=== PATIENT | male | born 1975 | race Caucasian/White ===

== ENCOUNTER 2022-08-29 10:54 | Inpatient (IN) ==
[2022-08-29] MEDS ORDERED: NS 0.9% 1000 ml BAG 1,000 ML IV ONE ×2 (10:56→15:50)
[2022-08-29] MEDS ORDERED: ceFAZolin 1 GM in Dextrose 1 GM/50 ML BAG IVPB ONE (11:02)
[2022-08-29 11:20] LABS: ABS Lymphocytes 0.8 10^3/uL (1.0-4.8); ABS Monocytes 0.6 10^3/uL (0.0-1.1); ABS Neutrophils 10.6 10^3/uL (1.5-7.6); ABS Nucleated RBC 0.01 10^3/ul; Eosinophil % 0.3 %; Hematocrit 41.3 % (38-53); Hemoglobin 13.9 g/dL (13.2-16.3); Lymphocyte % 6.6 %; Mean Corpuscular Hemoglobin 31.1 pg (27-33); Mean Corpuscular Hgb Conc 33.6 g/dL (31-36); Mean Corpuscular Volume 92.8 fL (80-97); Mean Platelet Volume 8.6 fL (7.5-11.2); Nucleated Red Blood Cells % 0.1 /100 WBC (0.0-0.4); Platelet Count 206 10^3/uL (150-450); Red Blood Count 4.46 10^6/uL (4.06-5.63); Red Cell Distribution Width 13.6 % (12-17)
[2022-08-29 12:03] LABS: Albumin 3.5 g/dL (3.2-5.2); C Reactive Protein 18.26 mg/L (<8.01); Calcium 8.9 mg/dL (8.6-10.3); Creatinine, Serum 0.93 mg/dL (0.67-1.17); Globulin 3.5 g/dL (2-4); Potassium 4.4 mmol/L (3.5-5.0); Total Bilirubin 0.6 mg/dL (0.2-1.0); eGFR CKD-EPI 100.7 (>60)
[2022-08-29 14:38] LABS: Urine Appearance Clear; Urine Bilirubin Negative (Negative); Urine Blood Negative (Negative); Urine Color Yellow; Urine Glucose Negative (Negative); Urine Ketones Negative (Negative); Urine Nitrite Negative (Negative); Urine Protein Negative (Negative); Urine Specific Gravity 1.011 (1.002-1.030); Urine Urobilinogen Negative (Negative)
[2022-08-29 14:47] LABS: Urine Bacteria Absent (Absent); Urine Red Blood Cell Trace(0-2/hpf) (Absent); Urine White Blood Cell 2+(11-20/hpf) (Absent)
[2022-08-29] MEDS ORDERED: Dextrose 50% Syringe 50 ml 25 GM/50 ML SYRINGE IV PUSH PRN (16:51)
[2022-08-29] MEDS ORDERED: Nicotine PATCH 14 MG/24 HR PATCH TRANSDERM SCH (17:00)
[2022-08-29] MEDS: Nicotine PATCH 21 MG/24 HR PATCH TRANSDERM SCH (17:06)
[2022-08-29] MEDS: Enoxaparin 40 MG/0.4 ML SYR SUBCUT SCH (17:06)
[2022-08-29] MEDS ORDERED: NS 0.9% 500 ml BAG 500 ML IV ONE (20:53)
[2022-08-29] MEDS: NS 0.9% 1000 ml BAG 1,000 ML IV SCH ×2 (20:54→21:42)
[2022-08-29] MEDS: Albuterol HFA INHALER 8 gm MDI INH PRN (21:22)
[2022-08-29] MEDS: cefTRIAXone 1 gm/50 mL D5W 1 GM/50 ML BAG IV SCH (23:01)
[2022-08-30 06:52] LABS: ABS Lymphocytes 1.3 10^3/uL (1.0-4.8); ABS Monocytes 0.7 10^3/uL (0.0-1.1); ABS Neutrophils 6.8 10^3/uL (1.5-7.6); ABS Nucleated RBC 0.01 10^3/ul; Eosinophil % 0.2 %; Hematocrit 35.9 % (38-53); Hemoglobin 12.2 g/dL (13.2-16.3); Lymphocyte % 14.7 %; Mean Corpuscular Hemoglobin 31.5 pg (27-33); Mean Corpuscular Hgb Conc 33.8 g/dL (31-36); Mean Corpuscular Volume 93.2 fL (80-97); Nucleated Red Blood Cells % 0.1 /100 WBC (0.0-0.4); Platelet Count 163 10^3/uL (150-450); Red Blood Count 3.86 10^6/uL (4.06-5.63); Red Cell Distribution Width 13.5 % (12-17); White Blood Count 8.9 10^3/uL (3.6-10.2)
[2022-08-30 07:10] LABS: Albumin 2.9 g/dL (3.2-5.2); Albumin/Globulin Ratio 0.9 (1-3); Calcium 8.2 mg/dL (8.6-10.3); Creatinine, Serum 1.11 mg/dL (0.67-1.17); Globulin 3.1 g/dL (2-4); Magnesium 1.6 mg/dL (1.9-2.7); Potassium 4.1 mmol/L (3.5-5.0); Total Bilirubin 0.8 mg/dL (0.2-1.0); eGFR CKD-EPI 81.4 (>60)
[2022-08-30] MEDS: FLUTICAS/UMECLI/VILANT 100-62.5-25 MDI (NF) INH SCH (07:11)
[2022-08-30] MEDS: Albuterol HFA INHALER 8 gm MDI INH PRN (07:11)
[2022-08-30] MEDS ORDERED: Magnesium Sulfate IV 3 GM in NS 0.9% 100 ml BAG 100 ML IVPB ONE (07:56)
[2022-08-30] MEDS: Nicotine PATCH 21 MG/24 HR PATCH TRANSDERM SCH (08:41)
[2022-08-30] MEDS ORDERED: Nicotine PATCH 14 MG/24 HR PATCH TRANSDERM SCH (09:00)
[2022-08-30] MEDS: NS 0.9% 1000 ml BAG 1,000 ML IV SCH ×2 (09:49→21:21)
[2022-08-30] MEDS: Enoxaparin 40 MG/0.4 ML SYR SUBCUT SCH (16:58)
[2022-08-30] MEDS: cefTRIAXone 1 gm/50 mL D5W 1 GM/50 ML BAG IV SCH (20:27)
[2022-08-30] MEDS ORDERED: Dextrose 50% Syringe 50 ml 25 GM/50 ML SYRINGE IV PUSH PRN (22:25)
[2022-08-31 06:26] LABS: ABS Eosinophils 0.1 10^3/uL (0.0-0.5); ABS Lymphocytes 2.2 10^3/uL (1.0-4.8); ABS Monocytes 1.3 10^3/uL (0.0-1.1); ABS Neutrophils 8.2 10^3/uL (1.5-7.6); ABS Nucleated RBC 0.01 10^3/ul; Eosinophil % 0.5 %; Hematocrit 37.4 % (38-53); Hemoglobin 12.6 g/dL (13.2-16.3); Lymphocyte % 18.8 %; Mean Corpuscular Hemoglobin 31.4 pg (27-33); Mean Corpuscular Hgb Conc 33.8 g/dL (31-36); Mean Platelet Volume 8.3 fL (7.5-11.2); Nucleated Red Blood Cells % 0.1 /100 WBC (0.0-0.4); Platelet Count 180 10^3/uL (150-450); Red Blood Count 4.02 10^6/uL (4.06-5.63); Red Cell Distribution Width 13.6 % (12-17); White Blood Count 11.9 10^3/uL (3.6-10.2)
[2022-08-31 07:17] LABS: Albumin 3.1 g/dL (3.2-5.2); Calcium 8.4 mg/dL (8.6-10.3); Magnesium 1.5 mg/dL (1.9-2.7); Potassium 4.2 mmol/L (3.5-5.0); Total Bilirubin 0.6 mg/dL (0.2-1.0)
[2022-08-31 07:23] LABS: Albumin/Globulin Ratio 0.9 (1-3); Creatinine, Serum 0.99 mg/dL (0.67-1.17); Globulin 3.4 g/dL (2-4); Total Protein 6.5 g/dL (6.4-8.9); eGFR CKD-EPI 93.4 (>60)
[2022-08-31] MEDS: FLUTICAS/UMECLI/VILANT 100-62.5-25 MDI (NF) INH SCH (07:53)
[2022-08-31] MEDS: Albuterol HFA INHALER 8 gm MDI INH PRN (07:53)
[2022-08-31] MEDS: NS 0.9% 1000 ml BAG 1,000 ML IV SCH (08:03)
[2022-08-31] MEDS ORDERED: Magnesium Sulfate IV 3 GM in NS 0.9% 100 ml BAG 100 ML IVPB ONE (08:05)
[2022-08-31] MEDS: Nicotine PATCH 21 MG/24 HR PATCH TRANSDERM SCH (08:05)
[2022-08-31] MEDS ORDERED: cefTRIAXone 1 gm/50 mL D5W 1 GM/50 ML BAG IV ONE (15:37)
[2022-08-31] MEDS: Enoxaparin 40 MG/0.4 ML SYR SUBCUT SCH (16:04)
[2022-08-31 16:18] VITALS: BP 129/86
== END 2022-08-31 16:30 | disposition home or self-care (01) | DRG 872 ==
LOC: EDHOLD 10:54 → ED 10:54 → OBSVTOIN 15:38 → MED 19:42
PROVIDERS: ADMIT Internal Medicine; ATTEND Internal Medicine

== ENCOUNTER 2022-11-30 06:59 | Inpatient (IN) ==
[2022-11-30] MEDS ORDERED: Lactated Ringers SEPSIS* BAG 2,250 ML IV ONE (07:40)
[2022-11-30] MEDS ORDERED: cefTRIAXone 1 gm/50 mL D5W 1 GM/50 ML BAG IV ONE (07:40)
[2022-11-30] MEDS ORDERED: NS 0.9% IV ONE (08:01)
[2022-11-30 08:45] LABS: ABS Lymphocytes 0.9 10^3/uL (1.0-4.8); ABS Monocytes 0.3 10^3/uL (0.0-1.1); ABS Neutrophils 9.1 10^3/uL (1.5-7.6); Eosinophil % 0.3 %; Hemoglobin 15.4 g/dL (13.2-16.3); Lymphocyte % 9.1 %; Mean Corpuscular Hgb Conc 34.2 g/dL (31-36); Mean Corpuscular Volume 93.5 fL (80-97); Mean Platelet Volume 8.6 fL (7.5-11.2); Platelet Count 165 10^3/uL (150-450); Red Blood Count 4.82 10^6/uL (4.06-5.63); Red Cell Distribution Width 14.5 % (12-17); White Blood Count 10.4 10^3/uL (3.6-10.2)
[2022-11-30 09:08] LABS: Albumin 3.9 g/dL (3.2-5.2); Albumin/Globulin Ratio 1.1 (1-3); C Reactive Protein 1.46 mg/L (<8.01); Creatinine, Serum 0.99 mg/dL (0.67-1.17); Globulin 3.5 g/dL (2-4); Potassium 4.2 mmol/L (3.5-5.0); Total Bilirubin 0.7 mg/dL (0.2-1.0); Total Protein 7.4 g/dL (6.4-8.9); eGFR CKD-EPI 93.4 (>60)
[2022-11-30] MEDS: FLUTICAS/UMECLI/VILANT 100-62.5-25 MDI (NF) INH SCH (10:36)
[2022-11-30] MEDS ORDERED: Dextrose 50% Syringe 50 ml 25 GM/50 ML SYRINGE IV PUSH PRN (10:37)
[2022-11-30] MEDS ORDERED: Lactated Ringers 1000 ml BAG 1,000 ML IV SCH ×2 (11:00→15:25)
[2022-11-30] MEDS: Aspirin EC 81 mg TAB.EC (enteric coated) PO SCH (11:00)
[2022-11-30] MEDS: Enoxaparin 40 MG/0.4 ML SYR SUBCUT SCH (11:01)
[2022-11-30] MEDS ORDERED: Nicotine GUM 4MG FRUIT FLAVOR PO PRN (11:53)
[2022-11-30] MEDS ORDERED: Nicotine Lozenge mini 4 MG LOZNG.MINI MT PRN (11:54)
[2022-11-30 12:00] LABS: HDL Cholesterol 18.7 mg/dL; Magnesium 1.2 mg/dL (1.9-2.7); Phosphorus 3.6 mg/dL (2.5-5.0)
[2022-11-30] MEDS ORDERED: Magnesium Sulf 4 GM/100 ML IV 4,000 MG/100 ML BAG IVPB ONE (12:01)
[2022-11-30] MEDS ORDERED: Nicotine PATCH 21 MG/24 HR PATCH TRANSDERM ONE (13:59)
[2022-11-30] MEDS ORDERED: Acetaminophen IV 1 GM/100ML 1,000 MG/100 ML BAG IV ONE (14:07)
[2022-11-30 14:35] LABS: Hepatitis C Antibody Negative (Negative)
[2022-11-30 16:30] LABS: Urine Appearance Clear; Urine Bilirubin Negative (Negative); Urine Blood 1+ (Negative); Urine Color Yellow; Urine Glucose Negative (Negative); Urine Ketones Negative (Negative); Urine Nitrite Negative (Negative); Urine Protein Negative (Negative); Urine Specific Gravity 1.006 (1.002-1.030); Urine Urobilinogen Negative (Negative)
[2022-11-30 16:33] LABS: Urine Bacteria Absent (Absent); Urine Red Blood Cell Trace(0-2/hpf) (Absent); Urine White Blood Cell Trace(0-5/hpf) (Absent)
[2022-11-30 17:38] LABS: UR Microalbumin (mg/L) < 15.0 mg/L; Urine Creatinine 30.54 mg/dL
[2022-11-30] MEDS: ceFAZolin 1 GM ADVAN 1 GM in NS 0.9% 50 ML 50 ML IVPB SCH (18:22)
[2022-12-01] MEDS: ceFAZolin 1 GM ADVAN 1 GM in NS 0.9% 50 ML 50 ML IVPB SCH (00:04)
[2022-12-01] MEDS: Acetaminophen IV 1 GM/100ML 1,000 MG/100 ML BAG IV PRN ×3 (03:49→21:40)
[2022-12-01] MEDS ORDERED: Lactated Ringers 1000 ml BAG 1,000 ML IV SCH (04:08)
[2022-12-01] MEDS: Lactated Ringers 1000 ml BAG 1,000 ML IV SCH ×3 (04:18→22:53)
[2022-12-01 04:39] LABS: ABS Lymphocytes 1.2 10^3/uL (1.0-4.8); ABS Monocytes 0.3 10^3/uL (0.0-1.1); ABS Nucleated RBC 0.01 10^3/ul; Hematocrit 38.5 % (38-53); Hemoglobin 13.3 g/dL (13.2-16.3); Lymphocyte % 11.6 %; Mean Corpuscular Hemoglobin 32.2 pg (27-33); Mean Corpuscular Hgb Conc 34.5 g/dL (31-36); Mean Corpuscular Volume 93.2 fL (80-97); Mean Platelet Volume 8.6 fL (7.5-11.2); Nucleated Red Blood Cells % 0.1 /100 WBC (0.0-0.4); Platelet Count 104 10^3/uL (150-450); Red Blood Count 4.13 10^6/uL (4.06-5.63); Red Cell Distribution Width 14.6 % (12-17); White Blood Count 10.5 10^3/uL (3.6-10.2)
[2022-12-01] MEDS ORDERED: Vancomycin per Pharmacy 1 EA NOTE FOLLOW UP SCH (05:00)
[2022-12-01] MEDS ORDERED: Vancomycin 1,500 MG in NS 0.9% 250 ml 250 ML IVPB ONE (05:00)
[2022-12-01 05:12] LABS: Albumin 3.1 g/dL (3.2-5.2); Albumin/Globulin Ratio 1.1 (1-3); C Reactive Protein 104.98 mg/L (<8.01); Calcium 8.6 mg/dL (8.6-10.3); Creatinine, Serum 1.14 mg/dL (0.67-1.17); Globulin 2.9 g/dL (2-4); Magnesium 1.6 mg/dL (1.9-2.7); Total Bilirubin 0.8 mg/dL (0.2-1.0); eGFR CKD-EPI 78.8 (>60)
[2022-12-01] MEDS ORDERED: Magnesium Sulfate IV 3 GM in NS 0.9% 100 ml BAG 100 ML IVPB ONE (07:23)
[2022-12-01] MEDS: FLUTICAS/UMECLI/VILANT 100-62.5-25 MDI (NF) INH SCH (08:13)
[2022-12-01] MEDS: Enoxaparin 40 MG/0.4 ML SYR SUBCUT SCH (08:56)
[2022-12-01] MEDS: Nicotine PATCH 21 MG/24 HR PATCH TRANSDERM SCH (08:56)
[2022-12-01] MEDS: Aspirin EC 81 mg TAB.EC (enteric coated) PO SCH (08:57)
[2022-12-01] MEDS ORDERED: Aspirin EC 81 mg TAB.EC (enteric coated) PO SCH (09:00)
[2022-12-01] MEDS ORDERED: FLUTICAS/UMECLI/VILANT 100-62.5-25 MDI (NF) INH SCH (09:00)
[2022-12-01] MEDS ORDERED: cefTRIAXone 1 gm/50 mL D5W 1 GM/50 ML BAG IV ONE (09:50)
[2022-12-01] MEDS ORDERED: cefTRIAXone 1 gm/50 mL D5W 1 GM/50 ML BAG IV SCH ×2 (10:00)
[2022-12-01 11:11] LABS: INR 3.14 (0.83-1.13)
[2022-12-01] MEDS: Vancomycin 1,250 MG in NS 0.9% 250 ml 250 ML IVPB SCH (15:51)
[2022-12-01] MEDS ORDERED: Magnesium Sulfate 2 gm BAG 2 GM/50 ML BAG IVPB ONE (22:29)
[2022-12-02] MEDS: Vancomycin 1,250 MG in NS 0.9% 250 ml 250 ML IVPB SCH (05:00)
[2022-12-02] MEDS: Lactated Ringers 1000 ml BAG 1,000 ML IV SCH (05:00)
[2022-12-02 05:32] LABS: ABS Lymphocytes 1.5 10^3/uL (1.0-4.8); ABS Monocytes 0.7 10^3/uL (0.0-1.1); ABS Neutrophils 8.8 10^3/uL (1.5-7.6); ABS Nucleated RBC 0.01 10^3/ul; Eosinophil % 0.1 %; Hematocrit 38.1 % (38-53); Hemoglobin 13.3 g/dL (13.2-16.3); Lymphocyte % 13.2 %; Mean Corpuscular Hemoglobin 32.3 pg (27-33); Mean Corpuscular Hgb Conc 35.1 g/dL (31-36); Mean Corpuscular Volume 92.3 fL (80-97); Mean Platelet Volume 8.4 fL (7.5-11.2); Nucleated Red Blood Cells % 0.1 /100 WBC (0.0-0.4); Platelet Count 105 10^3/uL (150-450); Red Blood Count 4.13 10^6/uL (4.06-5.63); Red Cell Distribution Width 14.7 % (12-17)
[2022-12-02 05:46] LABS: INR 2.33 (0.83-1.13)
[2022-12-02 05:48] LABS: Albumin 3.1 g/dL (3.2-5.2); Calcium 8.5 mg/dL (8.6-10.3); Creatinine, Serum 1.08 mg/dL (0.67-1.17); Magnesium 1.9 mg/dL (1.9-2.7); Potassium 4.5 mmol/L (3.5-5.0); Total Bilirubin 0.9 mg/dL (0.2-1.0); Total Protein 6.1 g/dL (6.4-8.9); eGFR CKD-EPI 84.1 (>60)
[2022-12-02] MEDS: FLUTICAS/UMECLI/VILANT 100-62.5-25 MDI (NF) INH SCH (07:18)
[2022-12-02] MEDS: Aspirin EC 81 mg TAB.EC (enteric coated) PO SCH (08:23)
[2022-12-02] MEDS: Enoxaparin 40 MG/0.4 ML SYR SUBCUT SCH (08:24)
[2022-12-02] MEDS: Nicotine PATCH 21 MG/24 HR PATCH TRANSDERM SCH (08:24)
[2022-12-02] MEDS ORDERED: cefTRIAXone 1 gm/50 mL D5W 1 GM/50 ML BAG IV SCH (12:00)
[2022-12-02] MEDS ORDERED: ceFAZolin 2 GM in NS PREMIX 2 GM/100 ML BAG IVPB SCH (13:00)
[2022-12-02] MEDS: ceFAZolin 2 GM PREMIX 2 GM/50 ML BAG IV SCH ×2 (13:16→20:18)
[2022-12-02 13:53] LABS: Hepatitis B Surface Antigen Nonreactive (Nonreactive)
[2022-12-02 13:58] LABS: Hepatitis A Ab IgM Negative (Negative)
[2022-12-02 14:00] LABS: Hepatitis B Core IgM Nonreactive (Nonreactive)
[2022-12-02 14:10] LABS: Hepatitis C Antibody Negative (Negative)
[2022-12-02] MEDS ORDERED: Magnesium Sulfate IV 1GM/100ML 1 GM/100 ML BAG IV ONE (14:17)
[2022-12-02] MEDS ORDERED: Vancomycin Trough Check NOTE FOLLOW UP ONE (16:30)
[2022-12-03] MEDS: ceFAZolin 2 GM PREMIX 2 GM/50 ML BAG IV SCH (05:21)
[2022-12-03 06:12] LABS: ABS Eosinophils 0.1 10^3/uL (0.0-0.5); ABS Lymphocytes 1.5 10^3/uL (1.0-4.8); ABS Monocytes 0.9 10^3/uL (0.0-1.1); ABS Neutrophils 6.7 10^3/uL (1.5-7.6); ABS Nucleated RBC 0.01 10^3/ul; Eosinophil % 1.2 %; Hematocrit 38.8 % (38-53); Hemoglobin 13.4 g/dL (13.2-16.3); Lymphocyte % 15.9 %; Mean Corpuscular Hemoglobin 32.2 pg (27-33); Mean Corpuscular Hgb Conc 34.5 g/dL (31-36); Mean Corpuscular Volume 93.2 fL (80-97); Mean Platelet Volume 8.9 fL (7.5-11.2); Nucleated Red Blood Cells % 0.1 /100 WBC (0.0-0.4); Platelet Count 134 10^3/uL (150-450); Red Blood Count 4.17 10^6/uL (4.06-5.63); White Blood Count 9.3 10^3/uL (3.6-10.2)
[2022-12-03 06:38] LABS: Albumin/Globulin Ratio 0.8 (1-3); C Reactive Protein 103.51 mg/L (<8.01); Calcium 8.5 mg/dL (8.6-10.3); Creatinine, Serum 0.99 mg/dL (0.67-1.17); Globulin 3.6 g/dL (2-4); Magnesium 1.7 mg/dL (1.9-2.7); Potassium 4.2 mmol/L (3.5-5.0); Total Bilirubin 0.7 mg/dL (0.2-1.0); Total Protein 6.6 g/dL (6.4-8.9); eGFR CKD-EPI 93.4 (>60)
[2022-12-03] MEDS: FLUTICAS/UMECLI/VILANT 100-62.5-25 MDI (NF) INH SCH (08:15)
[2022-12-03] MEDS: Enoxaparin 40 MG/0.4 ML SYR SUBCUT SCH (08:40)
[2022-12-03] MEDS: Nicotine PATCH 21 MG/24 HR PATCH TRANSDERM SCH (08:41)
[2022-12-03] MEDS: Aspirin EC 81 mg TAB.EC (enteric coated) PO SCH (08:43)
[2022-12-03 10:06] VITALS: BP 93/60
[2022-12-03] MEDS: Magnesium Sulfate IV 3 GM in NS 0.9% 100 ml BAG 100 ML IVPB ONE ×2 (11:39→12:03)
[2022-12-04 14:24] LABS: Anaplasma phagocytophilum Negative (Negative); B. miyamotoi PCR, B Negative (Negative); Babesia divergens/MO-1 Negative (Negative); Babesia ducani Negative (Negative); Ehrlichia chaffeensis Negative (Negative); Ehrlichia ewingii/canis Negative (Negative); Ehrlichia muris eauclairensis Negative (Negative)
== END 2022-12-03 12:50 | DRG 872 ==
LOC: ED 06:59 → EDHOLD 06:59 → MED 10:02 → EDHOLD 10:25 → MED 14:23 → SUATTDRO 12-01 11:33
PROVIDERS: ADMIT Internal Medicine; ATTEND Internal Medicine

== ENCOUNTER 2023-05-03 08:28 | Observation (INO) ==
[~2023-05-03 08:28] MED LIST: Metoclopramide 5 MG/ML VIAL (10 mg) IV PRN; NS 0.45% 1000 ml BAG 1,000 ML IV SCH; Naloxone 0.4 mg VIAL 0.4 mg/ml 1 ml VIAL IV PRN; Ondansetron 4 mg VIAL 2 MG/ML 2 ml VIAL IV PRN; fentaNYL 100 mcg/2 ml 50 MCG/ML VIAL IV PRN
[2023-05-03] MEDS ORDERED: Scopolamine 1 mg/72hr PATCH ONE (08:49)
[2023-05-03] MEDS ORDERED: ceFAZolin 2 GM in NS PREMIX 2 GM/100 ML BAG IVPB ONE (08:52)
[2023-05-03] MEDS ORDERED: Rocuronium 50 mg VIAL 10 mg/ml 5 ml VIAL (50 mg) ONE ×2 (10:35→11:39)
[2023-05-03] MEDS ORDERED: HYDROmorphone 0.5 MG/0.5 ML SYRINGE ONE (10:38)
[2023-05-03] MEDS ORDERED: Midazolam 2 mg/2 ml VIAL 1 mg/ml 2 ml VIAL (2 mg) ONE (10:38)
[2023-05-03] MEDS ORDERED: Bupivacaine 0.25% SDV 30 ML ONE (10:38)
[2023-05-03] MEDS ORDERED: Lidocaine 1% w EPI 1:200,000 SDV 30 ML VIAL ONE (10:38)
[2023-05-03] MEDS ORDERED: Sevoflurane BOTTLE ONE (12:56)
[2023-05-03] MEDS ORDERED: fentaNYL 100 mcg/2 ml 50 MCG/ML VIAL ONE ×2 (14:22→17:41)
[2023-05-03] MEDS ORDERED: Albuterol HFA INHALER 8 gm MDI INH PRN (15:59)
[2023-05-03] MEDS: Lactated Ringers 1000 ml BAG 1,000 ML IV SCH (16:12)
[2023-05-03] MEDS: Acetaminophen IV 1 GM/100ML 1,000 MG/100 ML BAG IV ONE (16:12)
[2023-05-03] MEDS: Scopolamine 1 mg/72hr PATCH TRANSDERM ONE (16:12)
[2023-05-03] MEDS: Buffered Lidocaine 1% SYRIN 1 ml INTRADERM ONE (16:12)
[2023-05-03 16:35] LABS: Rapid COVID-19 Molecular Undetected (Undetected)
[2023-05-03] MEDS ORDERED: Ondansetron ODT 4 mg TAB 4 MG TAB PO PRN (17:40)
[2023-05-03] MEDS: HYDROcodone/ACETAMIN 5/325 mg TAB PO PRN (18:00)
[2023-05-03] MEDS ORDERED: Propofol 10 MG/ML 20 ML BTL ONE (18:05)
[2023-05-04] MEDS: Heparin 5000 UNITS/ML 1 mL VIAL SUBCUT SCH (05:12)
[2023-05-04 06:18] LABS: ABS Lymphocytes 1.6 10^3/uL (1.0-4.8); ABS Neutrophils 7.5 10^3/uL (1.5-7.6); ABS Nucleated RBC 0.01 10^3/ul; Hematocrit 38.3 % (38-53); Hemoglobin 12.8 g/dL (13.2-16.3); Mean Corpuscular Hemoglobin 31.8 pg (27-33); Mean Corpuscular Hgb Conc 33.5 g/dL (31-36); Mean Corpuscular Volume 94.9 fL (80-97); Mean Platelet Volume 9.2 fL (7.5-11.2); Nucleated Red Blood Cells % 0.1 %/100WBC (0.0-0.8); Platelet Count 148 10^3/uL (150-450); Red Blood Count 4.03 10^6/uL (4.06-5.63); White Blood Count 10.1 10^3/uL (3.6-10.2)
[2023-05-04 10:18] VITALS: BP 136/84
== END 2023-05-04 11:54 | disposition home or self-care (01) ==
LOC: OR 08:28 → SSU 08:28
PROVIDERS: ADMIT Surgery; ATTEND Surgery